=== PATIENT | female | born 1975 | race Caucasian/White ===

== ENCOUNTER 2019-07-04 14:01 | Outpatient (CLI) | payer OTHER | END 2019-07-04 14:09 | disposition home or self-care (01) | LOC: RAD 14:01 | DX: R05 Cough (principal) ==

== ENCOUNTER → 2020-05-15 | Outpatient (CLI) | payer OTHER | END | disposition home or self-care (01) | LOC: PPH VACUNA 10:00 | DX: Z23 Encounter for immunization (principal) ==

== ENCOUNTER 2021-02-21 07:00 | Outpatient (CLI) | payer OTHER | END 2021-02-21 07:20 | disposition home or self-care (01) | LOC: PPH VACUNA 07:00 | PROVIDERS: ATTEND Emergency Medicine Pediatric Emergency Medicine | DX: Z23 Encounter for immunization (principal) ==